=== PATIENT | male | born 1990 | race Caucasian/White ===

== ENCOUNTER 2017-03-15 15:24 | Inpatient (IN) | payer OTHER ==
[~2017-03-15] VITALS: Ht 180.3 cm; Wt 87.2 kg
[2017-03-15 16:15] LABS: BASOPHIL COUNT 0.1 K/uL (0-0.1); EOSINOPHIL (%) 3.3 % (0-5); EOSINOPHIL COUNT 0.3 K/uL (0-0.3); HEMATOCRIT 42.9 % (38.0-50.0); IMMATURE GRANULOCYTE (%) 0.5 % (0.0-0.7); INSTRUMENT ABS NEUTROPHIL CT 5.2 K/uL; LYMPHOCYTE COUNT 1.7 K/uL (1.0-2.8); MCH 29.9 PG (29.0-34.0); MCHC 34.3 G/DL (30.0-36.0); MCV 87.2 FL (86-99); MONOCYTE (%) 8.1 % (3-12); MONOCYTE COUNT 0.6 K/uL (0-0.8); NEUTROPHIL (%) 65.9 % (45-76); NEUTROPHIL COUNT 5.2 K/uL (1.8-6.4); PLATELET COUNT 212 K/uL (156-360); RBC DIS.WIDTH-CV 12.5 % (11.8-14.6); RBC DIS.WIDTH-SD 39.9 % (39-53); RED BLOOD COUNT 4.92 M/uL (4.00-5.50); WHITE BLOOD COUNT 7.9 K/uL (4.1-10.2)
[2017-03-15 16:26] LABS: CHLORIDE 109 mEq/L (99-109); POTASSIUM 3.8 mEq/L (3.7-5.4); SODIUM 140 mEq/L (136-147)
[2017-03-15 16:27] LABS: GLUCOSE 100 mg/dL (70-99)
[2017-03-15 16:29] LABS: ANION GAP 9 MEQ/L (2-14)
[2017-03-15 16:31] LABS: GFR ESTIMATE (CALCULATED) > 59 mL/min/; SERUM ETHYL ALCOHOL < 10 mg/dL
[2017-03-15 16:32] LABS: UREA NITROGEN (BUN) 12 mg/dL (9-23)
[2017-03-15 17:38] LABS: ADD MIUA? YES; BILIRUBIN NEGATIVE; BLOOD NEGATIVE; COLOR YELLOW ((YELLOW)); GLUCOSE (STRIP) NEGATIVE; KETONES 5; LEUKOCYTES NEGATIVE; NITRITE NEGATIVE; PROTEIN (STRIP) 30; SPECIFIC GRAVITY 1.027 (1.000-1.030); UROBILINOGEN 0.2 MG/DL (0.2-1.0)
[2017-03-15 17:43] LABS: ADD MEDTOX COMMENT Y; AMPHETAMINE NEGATIVE (500 ng/mL); BARBITURATES NEGATIVE (200 ng/mL); BENZODIAZEPINES NEGATIVE (150 ng/mL); COCAINE NEGATIVE (150 ng/mL); INTERNAL CONTROLS VALID? YES; METHADONE NEGATIVE (200 ng/mL); METHAMPHETAMINE NEGATIVE (500 ng/mL); OPIATES (MORPHINE) NEGATIVE (100 ng/mL); OXYCODONE NEGATIVE (100 ng/mL); PHENCYCLIDINE NEGATIVE (25 ng/mL); PROPOXYPHENE NEGATIVE (300 ng/mL); THC CANNABINOIDS PRESUMPTIVE POSITIVE (50 ng/mL); TRICYCLIC ANTIDEPRESSANTS NEGATIVE (300 ng/mL)
[2017-03-15 17:54] LABS: CASTS NONE SEEN /LPF; EPITHELIAL CELLS RARE /HPF; MUCUS 1+ /LPF
[2017-03-15 17:55] LABS: BACTERIA NONE SEEN /HPF; CALCIUM OXALATE CRYSTALS RARE /HPF; CRYSTALS PRESENT; RED BLOOD CELLS NONE SEEN /HPF (0-5); WHITE BLOOD CELLS RARE /HPF (0-5)
[2017-03-15 21:12] VITALS: BP 167/78
[2017-03-16 07:37] VITALS: BP 153/78
[2017-03-16 15:30] VITALS: BP 149/85
[2017-03-17 07:51] VITALS: BP 126/76
[2017-03-17 15:40] VITALS: BP 146/88
[2017-03-18 07:32] VITALS: BP 120/69
[2017-03-18 15:46] VITALS: BP 150/76
[2017-03-19 07:49] VITALS: BP 142/82
[2017-03-19] MEDS ORDERED: RISPERDAL2 MG PO (09:03)
[2017-03-19] MEDS ORDERED: DIVALPROEX SOD500 M1 PO (09:03)
== END 2017-03-19 11:37 | disposition home or self-care (01) | DRG 885 ==
LOC: EME 15:24 → 1WEST 17:58 → EDOF 17:58 → 1WEST 21:02
PROVIDERS: Emergency Medicine
DX: F31.2 Bipolar disorder, current episode manic severe with psychotic features (principal); F23 Brief psychotic disorder; R45.851 Suicidal ideations; F12.10 Cannabis abuse, uncomplicated; F17.210 Nicotine dependence, cigarettes, uncomplicated; F60.81 Narcissistic personality disorder; F41.9 Anxiety disorder, unspecified; R45.850 Homicidal ideations; G47.00 Insomnia, unspecified; Z88.0 Allergy status to penicillin
CPT/HCPCS: 80048; 80164; 81003; 84999; 85025; 90837; 97150 GO; 97165 GO; 99281; 99285; G0480

== ENCOUNTER 2017-05-24 04:23 | Inpatient (IN) | payer OTHER ==
[~2017-05-24] VITALS: Ht 175.3 cm; Wt 81.0 kg
[~2017-05-24 04:23] MED LIST: DIVALPROEX SOD500 M1 PO; RISPERDAL2 MG PO
[2017-05-24 04:45] LABS: HEMATOCRIT 43.7 % (38.0-50.0); MCHC 34.1 G/DL (30.0-36.0); MCV 87.9 FL (86-99); MEAN PLAT.VOLUME 9.7 uM^3 (9.0-12.4); PLATELET COUNT 219 K/uL (156-360); RBC DIS.WIDTH-CV 12.4 % (11.8-14.6); RBC DIS.WIDTH-SD 40.1 % (39-53); RED BLOOD COUNT 4.97 M/uL (4.00-5.50); WHITE BLOOD COUNT 6.9 K/uL (4.1-10.2)
[2017-05-24 04:57] LABS: CHLORIDE 104 mEq/L (99-109); POTASSIUM 3.6 mEq/L (3.7-5.4); SODIUM 139 mEq/L (136-147)
[2017-05-24 04:58] LABS: GLUCOSE 107 mg/dL (70-99)
[2017-05-24 05:00] LABS: ANION GAP 12 MEQ/L (2-14)
[2017-05-24 05:01] LABS: SERUM ETHYL ALCOHOL < 10 mg/dL
[2017-05-24 05:02] LABS: GFR ESTIMATE (CALCULATED) > 59 mL/min/
[2017-05-24 05:03] LABS: UREA NITROGEN (BUN) 14 mg/dL (9-23)
[2017-05-24 05:04] LABS: ADD MEDTOX COMMENT Y; AMPHETAMINE NEGATIVE (500 ng/mL); BARBITURATES NEGATIVE (200 ng/mL); BENZODIAZEPINES NEGATIVE (150 ng/mL); COCAINE NEGATIVE (150 ng/mL); INTERNAL CONTROLS VALID? YES; METHADONE NEGATIVE (200 ng/mL); METHAMPHETAMINE NEGATIVE (500 ng/mL); OPIATES (MORPHINE) NEGATIVE (100 ng/mL); OXYCODONE NEGATIVE (100 ng/mL); PHENCYCLIDINE NEGATIVE (25 ng/mL); PROPOXYPHENE NEGATIVE (300 ng/mL); THC CANNABINOIDS PRESUMPTIVE POSITIVE (50 ng/mL); TRICYCLIC ANTIDEPRESSANTS NEGATIVE (300 ng/mL)
[2017-05-24] MEDS ORDERED: BENADRYL25 MG PO (14:02)
[2017-05-24] MEDS ORDERED: ADVIL200 MG PO (14:02)
[2017-05-24] MEDS ORDERED: [UNRECOGNIZED DRUG - OTHER] BOTH EYES (14:03)
[2017-05-24 14:04] VITALS: BP 119/79
[2017-05-24 14:07] VITALS: BP 119/79
[2017-05-24] MEDS ORDERED: RISPERDAL2 MG PO (15:03)
[2017-05-24] MEDS ORDERED: DEPAKOTE ER500 MG PO (15:04)
[2017-05-24 15:35] VITALS: BP 127/80
[2017-05-25 08:52] VITALS: BP 119/77
[2017-05-25 16:31] VITALS: BP 121/71
[2017-05-26 07:58] VITALS: BP 134/62
[2017-05-26 15:38] VITALS: BP 123/65
[2017-05-27 07:17] VITALS: BP 127/58
== END 2017-05-27 11:10 | disposition home or self-care (01) | DRG 885 ==
LOC: EME 04:23 → 1WEST 12:22 → EDOF 12:22 → 1WEST 12:22 → ENRESERV 14:06 → 1WEST 05-27 11:10
DX: F31.2 Bipolar disorder, current episode manic severe with psychotic features (principal); F12.90 Cannabis use, unspecified, uncomplicated; F17.200 Nicotine dependence, unspecified, uncomplicated; F51.4 Sleep terrors [night terrors]; R45.850 Homicidal ideations; R45.851 Suicidal ideations; Z91.14 Patient's other noncompliance with medication regimen
CPT/HCPCS: 80048; 84999; 85027; 90837; 99281; 99285; G0480